=== PATIENT | female | born 1995 | race Caucasian/White ===

== ENCOUNTER 2022-12-23 06:39 | Observation (INO) | payer OTHER ==
[~2022-12-23] VITALS: Ht 167.6 cm; Wt 75.7 kg
[2022-12-23 08:02] LABS: BASOPHILS # (AUTO) 0.1 K/uL (0.0-0.2); BASOPHILS % (AUTO) 0.5 % (0.0-2.0); EOSINOPHILS % (AUTO) 0.3 % (0.0-4.0); HEMATOCRIT 36.6 % (36-48); HEMOGLOBIN 12.8 g/dL (12.0-16.0); LYMPHOCYTES # (AUTO) 1.9 K/uL (1.0-5.5); LYMPHOCYTES % (AUTO) 17.8 % (20.5-51.5); MEAN CORPUSCULAR HEMOGLOBIN 31 pg (27-31); MEAN CORPUSCULAR HGB CONC 35 % (32-36); MEAN CORPUSCULAR VOLUME 87 fL (79.0-98.0); MONOCYTES # (AUTO) 0.6 K/uL (0.0-1.0); MONOCYTES % (AUTO) 6.2 % (1.7-9.3); NEUTROPHILS # (AUTO) 7.9 K/uL (1.8-7.7); NEUTROPHILS % (AUTO) 75.2 % (40.0-70.0); PLATELET COUNT (AUTO) 200 K/uL (130-430); RED BLOOD CELL COUNT(AUTO) 4.21 MIL/uL (4.2-6.2); RED CELL DISTRIBUTION WIDTH 13.5 % (9.0-15.0); WHITE BLOOD COUNT (AUTO) 10.5 K/uL (4.8-10.8)
[2022-12-23 08:10] VITALS: BP_SYST 121; PULSE 89; RESP 18; TEMP 98.8; O2SAT 96
[2022-12-23 08:19] LABS: BILIRUBIN,URINE NEGATIVE (NEGATIVE); BLOOD, URINE 2+ (NEGATIVE); CLARITY/URINE CLEAR (CLEAR); COLOR,URINE YELLOW (YELLOW); GLUCOSE,URINE NEGATIVE (NEGATIVE); KETONES,URINE NEGATIVE (NEGATIVE); LEUKOCYTE ESTERASE ,URINE TRACE (NEGATIVE); NITRITE, URINE NEGATIVE (NEGATIVE); PROTEIN URINE NEGATIVE (NEGATIVE); UROBILINOGEN,URINE 0.2 (0.2-1.0)
[2022-12-23 08:20] LABS: BACTERIA,URINE FEW /HPF (None Seen)
== END 2022-12-23 19:55 | disposition home or self-care (01) ==
LOC: SPU 06:39
PROVIDERS: ADMIT Specialist; ATTEND Specialist
DX: O44.13 Complete placenta previa with hemorrhage, third trimester (principal); Z3A.35 35 weeks gestation of pregnancy
CPT/HCPCS: 81000; 85025; 86886; 86900; 86901; 36415; G0379; J7120; G0378

== ENCOUNTER 2023-01-01 05:45 | Inpatient (IN) | payer OTHER ==
[2022-12-31 12:31] LABS: BASOPHILS % (AUTO) 0.2 % (0.0-2.0); EOSINOPHILS % (AUTO) 0.4 % (0.0-4.0); HEMATOCRIT 39.5 % (36-48); HEMOGLOBIN 13.7 g/dL (12.0-16.0); LYMPHOCYTES # (AUTO) 1.8 K/uL (1.0-5.5); LYMPHOCYTES % (AUTO) 20.1 % (20.5-51.5); MEAN CORPUSCULAR HEMOGLOBIN 31 pg (27-31); MEAN CORPUSCULAR HGB CONC 35 % (32-36); MEAN CORPUSCULAR VOLUME 88 fL (79.0-98.0); MONOCYTES # (AUTO) 0.5 K/uL (0.0-1.0); MONOCYTES % (AUTO) 5.9 % (1.7-9.3); NEUTROPHILS # (AUTO) 6.6 K/uL (1.8-7.7); NEUTROPHILS % (AUTO) 73.4 % (40.0-70.0); PLATELET COUNT (AUTO) 220 K/uL (130-430); RED BLOOD CELL COUNT(AUTO) 4.49 MIL/uL (4.2-6.2); RED CELL DISTRIBUTION WIDTH 13.9 % (9.0-15.0)
[2022-12-31 12:44] LABS: BILIRUBIN,URINE NEGATIVE (NEGATIVE); COLOR,URINE YELLOW (YELLOW); GLUCOSE,URINE NEGATIVE (NEGATIVE); LEUKOCYTE ESTERASE ,URINE 1+ (NEGATIVE); NITRITE, URINE NEGATIVE (NEGATIVE); PH,URINE 6.5 (5.0-8.0); PROTEIN URINE NEGATIVE (NEGATIVE); UROBILINOGEN,URINE 0.2 (0.2-1.0)
[2022-12-31 12:47] LABS: BLOOD, URINE TRACE (NEGATIVE); CLARITY/URINE HAZY (CLEAR); KETONES,URINE NEGATIVE (NEGATIVE)
[2022-12-31 12:53] LABS: BACTERIA,URINE MODERATE /HPF (None Seen)
[2022-12-31 12:54] LABS: MUCUS,URINE 1+ /LPF (None Seen)
[~2023-01-01] VITALS: Ht 167.6 cm; Wt 77.1 kg
[2023-01-01] MEDS ORDERED: CEFAZOLIN 1 GM IVPB PREMIX 50 ML IV ONE (06:00)
[2023-01-01 06:07] VITALS: BP_SYST 124; PULSE 100; RESP 18; TEMP 98.3
[2023-01-01] MEDS ORDERED: LR 1,000 ML IV SCH ×2 (07:00→09:30)
[2023-01-01] MEDS ORDERED: LR 1,000 ML IV.SOLN IV ONE (08:01)
[2023-01-01] MEDS ORDERED: BUPIVACAINE /DEX PF 0.75% SPINAL 2 ML AMP INJ ONE (08:01)
[2023-01-01] MEDS ORDERED: OXYTOCIN 10 UNIT/ML VIAL ONE (08:01)
[2023-01-01] MEDS ORDERED: MORPHINE SULFATE 10MG/10ML PF AMP ONE (08:01)
[2023-01-01] MEDS ORDERED: ONDANSETRON HCL 4 MG/2 ML VIAL ONE (08:01)
[2023-01-01] MEDS ORDERED: WATER FOR IRRIGATION,STERILE 1,000 ML IRRIG.SOLN IR ONE (08:01)
[2023-01-01] MEDS ORDERED: NS IRRIG SOLN 1000 ML IR ONE (08:01)
[2023-01-01] MEDS ORDERED: ONDANSETRON HCL 4 MG/2 ML VIAL IVP PRN (08:30)
[2023-01-01] MEDS ORDERED: NALOXONE HCL 0.4 MG/ML AMP (NARCAN) IVP PRN ×2 (08:30→09:30)
[2023-01-01] MEDS ORDERED: MORPHINE SULFATE 10MG/10ML PF AMP SP SCH (08:30)
[2023-01-01] MEDS ORDERED: KETOROLAC TROMETHAMINE 60 MG/2 ML VIAL IM PRN (08:30)
[2023-01-01] MEDS ORDERED: TEMAZEPAM 15 MG CAPSULE PO PRN (09:30)
[2023-01-01] MEDS ORDERED: DIPHENHYDRAMINE HCL 25 MG CAPSULE PO PRN (09:30)
[2023-01-01] MEDS ORDERED: OXYCODONE/ACETAMINOPHEN 5-325 TABLET PO PRN (09:30)
[2023-01-01] MEDS ORDERED: RHO(D) IMMUNE GLOBULIN/MALTOSE 1500 UNITS/1.3 ML (WINHRO) IM PRN (09:30)
[2023-01-01] MEDS ORDERED: LANOLIN 7 GM OINT. TP PRN (09:30)
[2023-01-01] MEDS ORDERED: ANUSOL 1 EA SUPP.RECT (PREPARATION H) RC PRN (09:30)
[2023-01-01] MEDS ORDERED: OXYCODONE/ACETAMINOPHEN *10*mg/325 mg TABLET PO PRN (09:30)
[2023-01-01] MEDS ORDERED: MEASLES,MUMPS&RUBELLA VACC/PF 12500 UNIT/0.5 ML VIAL SUBQ PRN (09:30)
[2023-01-01] MEDS ORDERED: DIPHTH,PERTUSS(ACELL),TET VAC 0.5 ML VIAL (Tdap) I.M. PRN (09:30)
[2023-01-01] MEDS: SIMETHICONE 80 MG TAB.CHEW PO SCH ×4 (12:34→21:34)
[2023-01-01] MEDS: OXYTOCIN/0.9 % SODIUM CHLORIDE 1,000 ML IV SCH (12:35)
[2023-01-01] MEDS: KETOROLAC TROMETHAMINE 30 MG VIAL IVP SCH (18:04)
[2023-01-01] MEDS: CEFAZOLIN 1 GM IVPB PREMIX 50 ML IV SCH (20:48)
[2023-01-01] MEDS ORDERED: SENNOSIDES/DOCUSATE SODIUM 1 TAB TABLET(SENOKOT-S) PO SCH (21:00)
[2023-01-01] MEDS: DOCUSATE SODIUM 100 MG CAPSULE PO SCH (21:34)
[2023-01-02] MEDS: KETOROLAC TROMETHAMINE 30 MG VIAL IVP SCH ×3 (00:18→12:06)
[2023-01-02] MEDS: OXYTOCIN/0.9 % SODIUM CHLORIDE 1,000 ML IV SCH ×2 (00:19→09:41)
[2023-01-02] MEDS: CEFAZOLIN 1 GM IVPB PREMIX 50 ML IV SCH (02:29)
[2023-01-02 06:28] LABS: BASOPHILS % (AUTO) 0.4 % (0.0-2.0); EOSINOPHILS # (AUTO) 0.1 K/uL (0.0-0.4); EOSINOPHILS % (AUTO) 1.1 % (0.0-4.0); HEMATOCRIT 33.4 % (36-48); HEMOGLOBIN 11.6 g/dL (12.0-16.0); LYMPHOCYTES # (AUTO) 1.7 K/uL (1.0-5.5); LYMPHOCYTES % (AUTO) 18.5 % (20.5-51.5); MEAN CORPUSCULAR HEMOGLOBIN 31 pg (27-31); MEAN CORPUSCULAR HGB CONC 35 % (32-36); MEAN CORPUSCULAR VOLUME 88 fL (79.0-98.0); MONOCYTES # (AUTO) 0.7 K/uL (0.0-1.0); MONOCYTES % (AUTO) 7.7 % (1.7-9.3); NEUTROPHILS # (AUTO) 6.8 K/uL (1.8-7.7); NEUTROPHILS % (AUTO) 72.3 % (40.0-70.0); PLATELET COUNT (AUTO) 167 K/uL (130-430); WHITE BLOOD COUNT (AUTO) 9.4 K/uL (4.8-10.8)
[2023-01-02] MEDS ORDERED: DIPHENHYDRAMINE HCL 25 MG CAPSULE PO PRN (08:12)
[2023-01-02] MEDS: DOCUSATE SODIUM 100 MG CAPSULE PO SCH ×2 (09:25→21:01)
[2023-01-02] MEDS ORDERED: BISACODYL 10 MG/SUPPOSITORY RC SCH (10:00)
[2023-01-02] MEDS: IBUPROFEN 600 MG TABLET PO SCH ×2 (17:49→23:52)
[2023-01-02 20:00] VITALS: BP_SYST 116; PULSE 98; RESP 18; TEMP 99
[2023-01-02] MEDS: SIMETHICONE 80 MG TAB.CHEW PO SCH (21:06)
[2023-01-02] MEDS: HYDROcodone/ACETAMIN 5-325 MG TAB (NORCO/ VICODIN) PO PRN (21:12)
[2023-01-03] MEDS: SIMETHICONE 80 MG TAB.CHEW PO SCH ×3 (02:35→09:27)
[2023-01-03] MEDS: HYDROcodone/ACETAMIN 5-325 MG TAB (NORCO/ VICODIN) PO PRN ×3 (02:35→11:13)
[2023-01-03] MEDS: IBUPROFEN 600 MG TABLET PO SCH ×2 (06:33→12:06)
[2023-01-03] MEDS: DOCUSATE SODIUM 100 MG CAPSULE PO SCH (09:26)
== END 2023-01-03 14:15 | disposition home or self-care (01) | DRG 788 ==
LOC: SPU 05:45
PROVIDERS: ADMIT Specialist; ATTEND Specialist
PROC: 10D00Z1 Extraction of Products of Conception, Low, Open Approach (ICD-10-PCS; principal; 2023-01-01 08:38)
DX: O44.03 Complete placenta previa NOS or without hemorrhage, third trimester (principal); Z3A.36 36 weeks gestation of pregnancy; Z37.0 Single live birth
CPT/HCPCS: 36415; 81000; 85025; 86592; 86886; 86900; 86901; 86920; J0690; J1885; J2274; J2405; J2590; J3490; J7120